=== PATIENT | female | born 2000 | race Hispanic/Latino ===

== ENCOUNTER 2021-06-16 22:33 | Emergency (ER) | payer OTHER, SELFPAY ==
--- NOTE | ~2021-06-16 | US_ITS ---
EXAMINATION: US OB <= 14 weeks fetus DATE: 06/17/2021 00:37 INDICATION: Bleeding during first trimester TECHNIQUE: Real-time pelvic transabdominal and transvaginal ultrasound was performed. COMPARISON: None. FINDINGS: The uterus measures 11.2 x 6.6 x 7.8 cm. There is an intrauterine gestational sac. There i s a 1.3 x 1.3 x 0.5 cm hypoechoic area adjacent to the gestational sac. heart motion is identif ied measuring 153 beats per minute (bpm) by M-mode Doppler. The crown rump length measures 4.5 cm , which correlates with an estimated gestational age of 11 weeks and 2 day(s) (+/-) 7 day(s). The right ovary is not visualized however no right adnexal abnormality is seen. The left ovary measur es 3.4 x 2.7 x 2.3 cm. There is normal vascular flow in the left ovary. There is no free fluid in the pelvis. IMPRESSION: 1. Live intrauterine with an estimated gestational age of 11 weeks and 2 day(s) (+/-) 7 day (s) and an estimated delivery date of 01/04/2022. 2. Small subchorionic hematoma. Reviewed, dictated and finalized at location A. IMPRESSION: 1. Live intrauterine with an estimated gestational age of 11 weeks an d 2 day(s) (+/-) 7 day(s) and an estimated delivery date of 01/04/2022. 2. Small subchorionic hematoma.
[2021-06-16 22:35] VITALS: BP 129/63; PULSE 78; RESP 18; TEMP 36.1; O2SAT 99
--- NOTE | 2021-06-16 22:52 | ED.PREGNANCY ---
HPI - General Chief complaint: Vaginal Bleeding Stated complaint: VAG BLEED 10WEEKS PREG Time Seen by Provider: 06/16/21 22:43 Source: patient Mode of arrival: ambulatory Limitations: no limitations History of Present Illness HPI Narrative: This is a 21-year-old , about 10 weeks , that presents to the emergency department for an episode of vaginal bleeding today. Her OB is Dr. Seals. She has not had ultrasound yet this . Reports she noted blood in her underwear earlier. She has not had any further bleeding since. Denies fever, vomiting, or dysuria. Related Data Allergies Allergy/AdvReac Type Severity Reaction Status Date / Time No Known Allergies Allergy Unverified 05/13/13 11:06 Review of Systems Review of Systems: CONSTITUTIONAL: Denies fever GASTROINTESTINAL: Denies abdominal pain, nausea, vomiting GENITOURINARY: Denies dysuria or hematuria. All systems reviewed & are unremarkable except as noted in HPI and below PMFSH Past Medical History Medical History (Updated 06/17/21 @ 01:54 by Belinda Bagley PA-C) No active medical problems Social History Social History (Updated 06/16/21 @ 22:53 by Belinda Bagley PA-C) Smoking status: Never smoker Exam Narrative: GENERAL: Well-appearing, well-nourished, and in no acute distress. HEAD: Normocephalic, atraumatic. EYES: EOMI. CHEST: Clear to auscultation. No respiratory distress. No wheezes rales or rhonchi HEART: Regular rate and rhythm. No murmur heard. Normal peripheral pulses. ABDOMEN: Soft, nontender, nondistended, normal active bowel sounds. EXTREMITIES: Normal range of motion. No edema. SKIN: Warm, dry, no rash. NEURO: No focal deficits. Alert and oriented x3. PSYCH: Normal mood and affect PELVIC: Normal appearing cervix, closed. No blood noted in the vaginal vault Course Vital Signs Vital signs: Vital Signs Temperature 97 F L 06/16/21 22:35 Pulse Rate 78 06/16/21 22:35 Respiratory Rate 18 06/16/21 22:35 Blood Pressure 129/63 06/16/21 22:35 Pulse Oximetry 99 06/16/21 22:35 Temperature 97 F L 06/16/21 22:35 Pulse Rate 83 06/17/21 00:45 Respiratory Rate 16 06/17/21 00:45 Blood Pressure 119/64 06/17/21 00:45 Pulse Oximetry 100 06/17/21 00:45 MDM - OB/Uterine Contractions MDM Narrative Medical decision making narrative: Patient presents to the emergency department for an episode of vaginal bleeding today, reportedly about 10 weeks by LMP. Her vitals are stable. No bleeding noted on exam. Patient is O+. Her hemoglobin is normal. Her vitals are stable. Obstetrics ultrasound shows a single intrauterine gestation with heart tones noted at 153 bpm. Also shows a small subchorionic hemorrhage. Patient was updated on case findings. Instructed on pelvic rest and to have close follow-up with her OB. She was given warnings to return to the ER Lab Data Attestation: I reviewed the patient's lab results. Result diagrams: 06/16/21 23:12 Labs: Lab Results 06/16/21 06/16/21 06/16/21 Range/Units 23:12 23:12 23:12 WBC 12.6 H (4.5-10.0) K/mm3 RBC 4.21 (4.2-5.4) M/mm3 Hgb 12.1 (12.0-15.0) g/dL Hct 37.2 (37.0-47.0) % MCV 88.4 (80-100) fl MCH 28.7 (26-34) pg MCHC 32.5 (32-36) g/dl RDW 13.3 (11.5-14.5) % Plt Count 229 (150-375) k/mm3 MPV 12.1 H (7.4-10.4) fl Immature Gran % (Auto) 0.4 (0-0.5) % Neut % (Auto) 70.1 (45.5-73.1) % Lymph % (Auto) 23.3 (18.3-44.2) % Edgar % (Auto) 5.2 (2.6-8.5) % Eos % (Auto) 0.8 (0-4.4) % Baso % (Auto) 0.2 (0.2-1.2) % Lymph # (Auto) 2.94 (0.9-3.2) K/mm3 Edgar # (Auto) 0.7 H (0.1-0.6) K/mm3 Eos # (Auto) 0.1 (0-0.3) K/mm3 Baso # (Auto) 0.0 (0.0-0.1) K/mm3 Abs Immat Gran (auto) 0.05 H (0.00-0.031) K/mm3 Absolute Neuts (auto) 8.8 H (1.3-6.7) K/mm3 Absolute Nucleated RBC 0.0 (0.0-0.012) K/mm3 Nucleated RBC % 0.0 (0.
[2021-06-16 23:21] LABS: Basophils Percent Auto 0.2 % (0.2-1.2); Eosinophils Absolute Auto 0.1 K/mm3 (0-0.3); Eosinophils Percent Auto 0.8 % (0-4.4); Hematocrit 37.2 % (37.0-47.0); Hemoglobin 12.1 g/dL (12.0-15.0); Immature Granulocyte Absolute 0.05 K/mm3 (0.00-0.031); Immature Granulocyte Percent A 0.4 % (0-0.5); Lymphocytes Absolute Auto 2.94 K/mm3 (0.9-3.2); Lymphocytes Percent Auto 23.3 % (18.3-44.2); Mean Corpuscular HGB Conc 32.5 g/dl (32-36); Mean Corpuscular Hemoglobin 28.7 pg (26-34); Mean Corpuscular Volume 88.4 fl (80-100); Mean Platelet Volume 12.1 fl (7.4-10.4); Monocytes Absolute Auto 0.7 K/mm3 (0.1-0.6); Monocytes Percent Auto 5.2 % (2.6-8.5); Neutrophils Absolute Auto 8.8 K/mm3 (1.3-6.7); Neutrophils Percent Auto 70.1 % (45.5-73.1); Platelet Count Result 229 k/mm3 (150-375); Red Blood Count 4.21 M/mm3 (4.2-5.4); Red Cell Distribution Width 13.3 % (11.5-14.5); White Blood Count 12.6 K/mm3 (4.5-10.0)
[2021-06-17 00:45] VITALS: BP 119/64; PULSE 83; RESP 16; O2SAT 100
[2021-06-17 02:10] VITALS: BP 101/77; PULSE 66; RESP 16; O2SAT 97
== END 2021-06-17 02:10 | disposition home or self-care (01) ==
PROVIDERS: Physician Assistant; Emergency Provider Emergency Medicine
DX: O46.8X1 Other antepartum hemorrhage, first trimester (principal); Z3A.10 10 weeks gestation of pregnancy
CPT/HCPCS: 36415; 76801; 81025; 84702; 85025; 85461; 99284

== ENCOUNTER 2021-09-25 19:03 | Emergency (ER) | payer OTHER, MEDICAID, SELFPAY ==
[2021-09-25 19:38] VITALS: BP 122/60; PULSE 135; RESP 20; TEMP 36.5; O2SAT 99
[2021-09-25 20:26] LABS: SARS-CoV-2 RNA PCR Positive
[2021-09-25 21:21] VITALS: BP 108/66; PULSE 130; RESP 18; TEMP 37.6; O2SAT 100
--- NOTE | 2021-09-25 21:27 | ED.GENADULT ---
HPI - General Adult General Chief complaint: Unspecified Stated complaint: Headache, sore throat, can't taste anything Time Seen by Provider: 09/25/21 21:07 History of Present Illness HPI narrative: 19-year-old female presents emergency room secondary to cough, congestion, chills, fever, sore throat, and fatigue. Is been going on since yesterday. She is not vaccinated for COVID. She lives with her son who has no symptoms at this point. She is had no associated vomiting diarrhea. No other medical problems. Related Data Allergies Allergy/AdvReac Type Severity Reaction Status Date / Time No Known Allergies Allergy Verified 09/25/21 19:38 Review of Systems Review of Systems: CONSTITUTIONAL: Having chills fever and fatigue EYES: Denies visual changes, redness, or discharge. ENT: Sore throat runny nose noted CARDIOVASCULAR: Denies chest pain, palpitations, or edema. RESPIRATORY: Denies cough or dyspnea. GASTROINTESTINAL: Denies abdominal pain, nausea, vomiting, or diarrhea. GENITOURINARY: Denies dysuria or hematuria. SKIN: Denies rash or itching. MUSCULOSKELETAL: Denies back pain, joint pain, or myalgia. NEUROLOGIC: Denies headache, numbness, or weakness. PSYCHIATRIC: Denies anxiety or depression. PMFSH Past Medical History Medical History No active medical problems Social History Social History Smoking status: Never smoker Exam Narrative: APPEARANCE: Well appearing, no pain or distress, well-nourished. Head Normocephalic and atraumatic. EYES: PERRLA/EOMI, conjunctivae clear. NOSE: Normal with no drainage EARS:TMS clear with Lentz, with good light reflex. THROAT: Pharynx clear, no exudate. NECK: Supple. No adenopathy, no masses. RESPIRATORY: Airway patent, respirations nonlabored. Clear to auscultation bilaterally, no rales, rhonchi, wheezing. CARDIOVASCULAR: Regular rate and rhythm without murmurs, rubs, or gallops. ABDOMINAL: Soft, nontender, nondistended, no hepatosplenomegaly Musculoskeletal: Moves all extremities. Strength/ROM intact, No edema, No calf tenderness. NEURO: Alert. Cranial nerves II through XII intact. Normal gait. Good coordination. Nonfocal examination. SKIN:: Warm, dry. Normal Color PSYCHIATRIC: Normal affect/mood, normal interaction Course Vital Signs Vital signs: Vital Signs Temperature 97.7 F 09/25/21 19:38 Pulse Rate 135 H 09/25/21 19:38 Respiratory Rate 20 09/25/21 19:38 Blood Pressure 122/60 09/25/21 19:38 Pulse Oximetry 99 09/25/21 19:38 Oxygen Delivery Room Air 09/25/21 19:38 Temperature 99.6 F 09/25/21 21:21 Pulse Rate 130 H 09/25/21 21:21 Respiratory Rate 18 09/25/21 21:21 Blood Pressure 122/60 09/25/21 19:38 Pulse Oximetry 100 09/25/21 21:21 Oxygen Delivery Room Air 09/25/21 19:38 Medical Decision Making MDM Narrative Medical decision making narrative: Patient is COVID-positive. Reviewed with her this. I advised her she should get the COVID vaccination after she gets over this. She needs to just go home and rest. Increase fluids. Tylenol Advil as needed. DayQuil and NyQuil as needed. Given a work excuse for the next week. Vital Signs Vital Signs: Vital Signs Temperature 97.7 F 09/25/21 19:38 Pulse Rate 135 H 09/25/21 19:38 Respiratory Rate 20 09/25/21 19:38 Blood Pressure 122/60 09/25/21 19:38 Pulse Oximetry 99 09/25/21 19:38 Oxygen Delivery Room Air 09/25/21 19:38 Temperature 99.6 F 09/25/21 21:21 Pulse Rate 130 H 09/25/21 21:21 Respiratory Rate 18 09/25/21 21:21 Blood Pressure 122/60 09/25/21 19:38 Pulse Oximetry 100 09/25/21 21:21 Oxygen Delivery Room Air 09/25/21 19:38 Lab Data Labs: Lab Results 09/25/21 Range/Units 19:45 SARS-CoV-2 RNA (RT-PCR) Positive A Discharge Plan Discharge Clinical Impression: COVID-19 Patient Disposition:
[2021-09-25 21:34] VITALS: O2SAT 100
== END 2021-09-25 21:35 | disposition home or self-care (01) ==
PROVIDERS: Emergency Provider Emergency Medicine; PCP Obstetrics & Gynecology
DX: U07.1 COVID-19 (principal)
CPT/HCPCS: 99283; C9803; U0003; U0005

== ENCOUNTER 2021-11-08 18:09 | Observation (INO) | payer OTHER, MEDICAID, SELFPAY ==
[2021-11-08 18:47] VITALS: BP 116/67; PULSE 113
[2021-11-08 19:00] VITALS: BP 110/66; PULSE 115
[2021-11-08 20:00] VITALS: BP 113/85; PULSE 102
[2021-11-08] MEDS: CYCLOBENZAPRINE HCL 10 MG TABLET PO (20:02)
[2021-11-08 20:05] LABS: Appearance Urine Slightly Cloudy (Clear); Bilirubin Urine Negative (Negative); Blood Urine Negative (Negative); Color Urine Yellow (Yellow); Glucose Urine UA Negative (Negative); Ketones Urine Negative (Negative); Leukocyte Esterase Ur Negative LEU/UL (Negative); Nitrate Urine Negative (Negative); Protein Urine Negative (Negative); Urobilinogen Urine 0.2 mg/dL (<2.0)
[2021-11-08 20:11] LABS: Bacteria Urine Trace /hpf; Mucus Urine Rare /lpf; RBC Urine 0-2 /hpf (0-2); Squamous Epithelial Cell Urine Moderate /hpf (Few); WBC Urine 0-3 /hpf
[2021-11-08 20:11] LABS: Basophils Percent Auto 0.2 % (0.2-1.2); Eosinophils Percent Auto 0.3 % (0-4.4); Hematocrit 32.9 % (37.0-47.0); Hemoglobin 10.6 g/dL (12.0-15.0); Immature Granulocyte Absolute 0.06 K/mm3 (0.00-0.031); Immature Granulocyte Percent A 0.6 % (0-0.5); Lymphocytes Absolute Auto 1.05 K/mm3 (0.9-3.2); Lymphocytes Percent Auto 10.4 % (18.3-44.2); Mean Corpuscular HGB Conc 32.2 g/dl (32-36); Mean Corpuscular Hemoglobin 27.9 pg (26-34); Mean Corpuscular Volume 86.6 fl (80-100); Monocytes Absolute Auto 0.5 K/mm3 (0.1-0.6); Monocytes Percent Auto 4.5 % (2.6-8.5); Neutrophils Absolute Auto 8.5 K/mm3 (1.3-6.7); Platelet Count Result 181 k/mm3 (150-375); Red Cell Distribution Width 14.1 % (11.5-14.5); White Blood Count 10.1 K/mm3 (4.5-10.0)
[2021-11-08 20:17] LABS: Add Urine Microscopic? YES
--- NOTE | 2021-11-08 21:44 | OBADM ---
This patient, Macrina Olivier, admitted to the OB room [facility] Post [facility] for observation. Patient/family oriented to hospital policies and general routines including ID bracelet, bed and alarms, visiting hours, pain management, procedures, bathroom and other care routines, personal items, smoking policy, room service/diet, and visiting hours. Patient/Family are encouraged to report perceived risks to care and to ask questions if they do not understand what they are told or what they should do.
--- NOTE | 2021-11-26 19:50 | PM.OBTRLD ---
OB - Triage/Final Diagnosis Visit Information Comments/Additional reasons for admission: I have assessed the risk for this patient, Macrina Olivier, and determined that she would benefit from observation care. Evaluation Laboratory results: Laboratory Tests 11/08/21 11/08/21 19:00 19:56 WBC 10.1 H RBC 3.80 L Hgb 10.6 L Hct 32.9 L MCV 86.6 MCH 27.9 MCHC 32.2 RDW 14.1 Plt Count 181 MPV 12.0 H Immature Gran % (Auto) 0.6 H Neut % (Auto) 84.0 H Lymph % (Auto) 10.4 L Sequoyah % (Auto) 4.5 Eos % (Auto) 0.3 Baso % (Auto) 0.2 Lymph # (Auto) 1.05 Sequoyah # (Auto) 0.5 Eos # (Auto) 0.0 Baso # (Auto) 0.0 Abs Immat Gran (auto) 0.06 H Absolute Neuts (auto) 8.5 H Absolute Nucleated RBC 0.0 Nucleated RBC % 0.0 Urine Color Yellow Urine Appearance Slightly cloudy Urine pH 6.0 Ur Specific Follett 1.020 Urine Protein Negative Urine Glucose (UA) Negative Urine Ketones Negative Ur Blood (Man) Negative Urine Nitrate Negative Urine Bilirubin Negative Urine Urobilinogen 0.2 Leukocyte Esterase Rfl Negative Urine RBC 0-2 Urine WBC 0-3 Ur Squamous Epith Cells Moderate H Urine Bacteria Trace Urine Mucus Rare Final Diagnosis (1) Abdominal pain: Code(s): R10.9 - Unspecified abdominal pain Status: Acute
== END 2021-11-08 20:40 | disposition home or self-care (01) ==
PROVIDERS: Advanced Practice Midwife; Admitting Provider Obstetrics & Gynecology; Visit Provider Obstetrics & Gynecology
DX: O26.893 Other specified pregnancy related conditions, third trimester (principal); R10.9 Unspecified abdominal pain; M54.9 Dorsalgia, unspecified; R10.2 Pelvic and perineal pain; Z3A.31 31 weeks gestation of pregnancy
CPT/HCPCS: 36415; 81001; 85025; A9270; G0378; G0379

== ENCOUNTER 2021-12-11 22:00 | Outpatient (CLI) | payer OTHER, MEDICAID, SELFPAY ==
--- NOTE | 2021-12-11 22:57 | PC.NURSE ---
pt came in with C/O leaking fluid. states that she was laying in bed and felt fluid leaking. [id number]- called Dr. Seals- informed of pt admission for possible SROM- ROM Plus- negative. FHT reviewed. order received to d/c home with instructions on when to return to L&D.
== END 2021-12-11 22:01 | disposition home or self-care (01) ==
PROVIDERS: Visit Provider Obstetrics & Gynecology
DX: O26.851 Spotting complicating pregnancy, first trimester (principal); Z3A.00 Weeks of gestation of pregnancy not specified
CPT/HCPCS: 59025; 84112

== ENCOUNTER 2021-12-24 09:56 | Outpatient (CLI) | payer OTHER, MEDICAID, SELFPAY ==
[2021-12-24 10:14] VITALS: BP 127/72; PULSE 90
--- NOTE | 2021-12-24 10:58 | PM.IMHP ---
H&P: HPI History of Present Illness Date/Time: 12/24/21 10:58 Chief Complaint: Loss of fluid Narrative: 21-year-old 2 para 1001 at term with suspected rupture membranes. She had some gross watery vaginal discharge. She was evaluated here found to be intact with no ruptured membranes that was detectable. She is having an occasional contraction. She denies any vaginal bleeding or regular contractions. She denies any chest pain shortness of breath. She denies any nausea, vomiting, fever, chills. She reports good movement. Review of Systems Review of Systems: All systems reviewed & are unremarkable except as noted in HPI and below Constitutional: Constitutional: Denies chills, Denies fatigue, Denies fever(s) and Denies weakness Eyes: Eyes: Denies blurry vision, Denies change in vision, Denies loss of peripheral vision, Denies loss of vision, Denies other visual disturbances and Denies eye pain ENT: Denies vertigo, Denies dizziness, Denies hearing loss, Denies mouth pain, Denies nasal obstruction, Denies neck mass and Denies neck pain Cardiovascular: Cardiovascular: Denies chest pain, Denies diaphoresis, Denies syncope, Denies leg edema and Denies dyspnea Respiratory: Respiratory: Denies chest congestion, Denies cough, Denies hemoptysis, Denies dyspnea and Denies wheezing Gastrointestinal: Gastrointestinal: Denies abdominal pain, Denies constipation, Denies diarrhea, Denies nausea and Denies vomiting Genitourinary: Genitourinary: Denies hematuria, Denies change in libido, Denies nocturia, Denies genital lesions, Denies flank pain and Denies urinary urgency Musculoskeletal: Musculoskeletal: Denies abnormal gait, Denies back pain, Denies myalgias, Denies arthralgias, Denies joint swelling, Denies muscle weakness and Denies neck pain Integumentary/Breasts: Skin/Breast: Denies swelling, Denies breast pain, Denies breast mass, Denies dry skin, Denies nipple discharge, Denies unusual bruising and Denies jaundice Neurologic: Denies Neuro-related abnormal movements, Denies Abnormal speech present, Denies abnormal gait, Denies behavioral changes, Denies confusion, Denies vertigo, Denies dizziness, Denies syncope, Denies loss of vision, Denies memory loss, Denies convulsions and Denies weakness Psychiatric: Psychiatric: Denies abnormal sleep pattern, Denies behavioral changes, Denies change in libido, Denies confusion, Denies depression, Denies anhedonia and Denies memory loss Endocrine: Endocrine: Reports no additional endocrine complaints, Denies change in libido and Denies fatigue Hematologic/Lymphatic: Hematologic/Lymphatic: Reports no additional hematologic/lymphatic complaints Allergic/Immunologic: Allergic/Immunologic: Reports no additional allergic/immunologic complaints and Denies wheezing PMFSH Past Medical History Medical History No active medical problems Family History Family History (Updated 12/06/21 @ 12:42 by Brijesh Santos RN) Other No pertinent family history Social History Social History Smoking status: Never smoker Substance use: never Spiritual care concerns: No Meds Home Medications and Allergies Allergies Allergy/AdvReac Type Severity Reaction Status Date / Time No Known Allergies Allergy Verified 12/06/21 12:42 Vital Signs Vital Signs - 24 hr 12/24/21 10:14 Pulse Rate 90 Blood Pressure 127/72 Exam Const: General: cooperative, healthy appearing, comfortable and no acute distress; No confusion Orientation/consciousness: oriented to person, oriented to place, oriented to time and No confusion HENMT: Head: normal to inspection Ears: external ears normal Face/Nose/Sinus: Normal external nose present and normal facial exam Face and sinus: normal facial exam Eyes: General: appearance normal, both eyes and all related structures Neck: Neck: normal visu
[2021-12-24 11:47] VITALS: BP 127/72; PULSE 105
== END 2021-12-24 11:04 | disposition home or self-care (01) ==
LOC: ANHOBOP 10:02 → ANHLDR 10:04
PROVIDERS: Visit Provider Obstetrics & Gynecology
DX: O42.90 Premature rupture of membranes, unspecified as to length of time between rupture and onset of labor, unspecified weeks of gestation (principal); Z3A.00 Weeks of gestation of pregnancy not specified
CPT/HCPCS: 59025; 84112; 99199

== ENCOUNTER 2021-12-31 21:26 | Inpatient (IN) | payer OTHER, MEDICAID, SELFPAY ==
[2021-12-31] VITALS (10 sets, daily range): BP systolic 77–143; BP diastolic 58–129; PULSE 55–124; RESP 17; TEMP 37.1; BMI 43.1
--- NOTE | 2021-12-31 21:26 | LDADM ---
This patient, Macrina Olivier, was admitted to Labor/Delivery/Recovery 108 on 12/31/21 at 21:26. Plans for labor, pain management and were discussed with patient. Patient/family oriented to hospital policies and general routines including ID bracelet, bed and alarms, visiting hours, pain management, procedures, bathroom and other care routines, personal items, smoking policy, room service/diet and guest tray routines, security routines, and visiting hours. Patient/Family are encouraged to report perceived risks to care and to ask questions if they do not understand what they are told or what they should do. See OBIX for further documentation.
--- OUTSIDE RECORDS SUMMARY | 2021-12-31 21:36 | XMS_ITS | Encounter Summary ---
:2000 Author Reason for Visit None recorded. Assessment and Plan 1. Reduced movement ? US, obstetric, limited Discussion Note: None recorded.Patient educational handouts: No information available. Plan of Care Reminders Provider Appointments Ob Routine 01/03/2022 10:45AM Ana guzman CNM Lab None recorded. ? ? Referral None recorded. ? ? Procedures None recorded. ? ? Surgeries None recorded. ? ? Imaging US, Obstetric, Limited 12/29/2021 Pb simental Medications Name Start Date ? ? calcium carbonate 600 mg-vitamin D3 10 mcg (400 unit) tablet ? TAKE ONE TABLET BY MOUTH TWICE DAILY multivitamin tablet ? TAKE 1 TABLET BY MOUTH EVERY DAY Medications Administered None recorded. Vitals None recorded. Results Lab Results None recorded. Allergies None recorded. Problems Name Status Onset Date Source ? Active 07/06/2021 ? Procedures Date Name Performed by ? 12/15/2021 US, Obstetric, Follow-up [place] [address] [place] [address] ([address]) 12/29/2021 Non-stress Test [facility] [address] [place] [address] ([address]) 12/29/2021 US, Obstetric, Limited [facility] [address] [place] [address]
--- OUTSIDE RECORDS SUMMARY | 2021-12-31 21:36 | XMS_ITS | Encounter Summary ---
:1999 Author Reason for Visit OB visit OB [id number] EDC 01/04/2022 LMP 04/05/2021 Assessment and Plan Assessment Note Patient is __ 37 weeks . Discus sed plan. Discussion Note: None recorded.Patient educational handouts: No information available. Plan of Care Reminders Provider Appointments Ob Routine 01/03/2022 10:45AM Ana guzman CNM Lab None recorded. ? ? Referral None recorded. ? ? Procedures None recorded. ? ? Surgeries None recorded. ? ? Imaging None recorded. ? ? Medications Name Start Date ? ? calcium carbonate 600 mg-vitamin D3 10 mcg (400 unit) tablet ? TAKE ONE TABLET BY MOUTH TWICE DAILY multivitamin tablet ? TAKE 1 TABLET BY MOUTH EVERY DAY Medications Administered None recorded. Vitals Height Weight BMI Blood Pressure 5 ft 2 in 233 lbs 42.6 kg/m2 129/74 mm[Hg] Results Lab Results None recorded. Allergies None recorded. Problems Name Status Onset Date Source ? Active 07/06/2021 ? Procedures Date Name Performed by ? 12/15/2021 , Obstetric, Follow-up [place] [address] [place] [address] ([address]) Vaccine List None recorded. Social History Tobacco Smoking Status Never Smoker Do you have difficulty walking or climbing stairs? N What type of diet are you following? REGULAR Are you able to walk? YESWOREST Are you able to care for yourself? Y
--- OUTSIDE RECORDS SUMMARY | 2021-12-31 21:36 | XMS_ITS ---
:1999 Author Care Team Providers Name Role Phone Ana Chen Primary Care Provider Unavailable Allergies None recorded. Medications Name Status Start Date Stop Date ? ? calcium carbonate 600 mg-vitamin D3 10 mcg (400 unit) tablet Act fabienne ? Not available TAKE ONE TABLET BY MOUTH TWICE DAILY multivitamin tablet Active ? Not availabl e TAKE 1 TABLET BY MOUTH EVERY DAY Problems Name Status Onset Date Source ? Active 07/06/2021 ? Procedures Date Name Performed by ? 07/06/2021 US, Obstetric, 1St Trimester [place] [address] [place], [place] [phone] ([address]) 09/21/2021 US, Obstetric, 2Nd or 3Rd Trimester [facility] [address] [place], [place] [phone] ([address]) 10/19/2021 , Obstetric, Follow-up [place] [address] [place] [address] ([address]) 11/13/2021 , Obstetric, Follow-up [place] [address] [place] [address] ([address]) 12/15/2021 , Obstetric, Follow-up [place] [address] [place] [place] [address] ([address]) 12/29/2021 Non-stress Test [place] [address]
--- OUTSIDE RECORDS SUMMARY | 2021-12-31 21:36 | XMS_ITS | Encounter Summary ---
:1999 Author Reason for Visit None recorded. Assessment and Plan 1. Reduced movement ? non-stress test Discussion Note: None recorded.Patient educational handouts: No information available. Plan of Care Reminders Provider Appointments Ob Routine 01/03/2022 10:45AM Ana guzman CNM Lab None recorded. ? ? Referral None recorded. ? ? Procedures None recorded. ? ? Surgeries None recorded. ? ? Imaging Non-stress Test 12/29/2021 [place] Medications Name Start Date ? ? calcium [...] Performed by ? 12/15/2021 US, Obstetric, Follow-up [place] [address] [place] [address] ([address]) 12/29/2021 Non-stress Test [place] [address] [place] [address] ([address]) 12/29/2021 US, Obstetric, Limited [place] [address] [place] [address] ([address]) Vaccine List None re
--- OUTSIDE RECORDS SUMMARY | 2021-12-31 21:36 | XMS_ITS | Encounter Summary ---
:1999 Author Reason for Visit OB visit OB [id number] EDC 01/04/2022 LMP 04/05/2021 Assessment and Plan Assessment Note Patient is ___39 weeks . Discus sed plan. 1. Routine care Discussion Note: None recorded.Patient educational handouts: No [...] BMI Blood Pressure 5 ft 2 in 236 lbs 43.2 kg/m2 133/82 mm[Hg] Results Lab Results None recorded. Allergies None recorded. Problems Name Status Onset Date Source ? Active 07/06/2021 ? Procedures Date Name Performed by ? 12/15/2021 US, Obstetric, Follow-up [place] [address] [place] [address] ([address]) 12/29/2021 Non-stress Test [place] [address] [place] [address] ([address]) 12/29/2021 US, O
--- OUTSIDE RECORDS SUMMARY | 2021-12-31 21:36 | XMS_ITS | Encounter Summary ---
:1999 Author Reason for Visit OB visit Assessment and Plan 1. Routine care Discussion Note: None recorded.Patient [...] BMI Blood Pressure 5 ft 2 in 235 lbs 43 kg/m2 115/76 mm[Hg] Results Lab Results None recorded. Allergies None recorded. Problems Name Status Onset Date Source ? Active 07/06/2021 ? Procedures Date Name Performed by ? 12/15/2021 US, Obstetric, Follow-up [place] [address] [place] [address] ([address]) Vaccine List None recorded. Social History Tobacco Smoking Status Never Smoker Do you have difficulty walking or climbing stairs? N What type of diet are you following? REGULAR Are you able to walk? YESWOREST Are you able to care for yourself? Y Has tobacco cessation counseling been provided? N Are you blind or do you have difficulty seeing? N
--- OUTSIDE RECORDS SUMMARY | 2021-12-31 21:36 | XMS_ITS | Encounter Summary ---
:1999 Author Reason for Visit None recorded. Assessment and Plan 1. Chronic hypertension complicating AN D/OR reason for care during ? US, obstetric, follow-up Discussion Note: None recorded.Patient educational handouts: No information available. Plan of Care Reminders Provider Appointments Ob Routine 01/03/2022 10:45AM Ana guzman CNM Lab None recorded. ? ? Referral None recorded. ? ? Procedures None recorded. ? ? Surgeries None recorded. ? ? Imaging US, Obstetric, Follow-up 12/15/2021 Luis Felipe joseph Medications Name Start Date ? ? calcium [...] Performed by ? 12/15/2021 US, Obstetric, Follow-up [place] [address] [place] [address] ([address]) Vaccine List [...]
--- OUTSIDE RECORDS SUMMARY | 2021-12-31 21:37 | XMS_ITS ---
:2000 Author Allergies Code Code System Name Reaction Severity Status Onset NKDA ? Notes: lactose intolerant Medications Name Status Start Date Stop Date ? ? cabergoline 0.5 mg tablet Completed ? 2021 Calcium 600 with Vitamin D3 600 mg-10 mcg (400 unit) capsule Com pleted ? 01/16/2018 Take 1 capsule every day by oral route. calcium carbonate 1,000 mg-vitamin D3 20 mcg (800 unit) tablet C ompleted ? 02/08/2017 Take 1 tablet twice a day by oral route. calcium carbonate 600 mg-vitamin D3 10 mcg (400 unit) tablet Act fabienne ? Not available TAKE ONE TABLET BY MOUTH TWICE DAILY calcium carbonate 600 mg-vitamin D3 20 mcg (800 unit) tablet Com pleted ? 02/08/2017 Take 1 tablet twice a day by oral route for 30 days. calcium carbonate 600 mg-vitamin D3 25 mcg (1,000 unit) tablet C ompleted ? 02/08/2017 Take 1 tablet every day by oral route. cimetidine 800 mg tablet Completed ? 017 Condoms-Mauricio Lubricated Completed ? 06/07/19 22 Take 1 device as needed by miscell. route as needed. Depo-Provera 150 mg/mL intramuscular syringe Completed ? 09/16/2015 Inject 150 mL every 3 months by intramuscular route as directed . ibuprofen 800 mg tablet Completed ? 02/09/20 17 Take one tablet every eight hours as needed. medroxyprogesterone 150 mg/mL intramuscular suspension Completed ? 07/21/2020 ADM 150 ML IM Q 3 MONTHS multivitamin tablet Active ? Not availabl e TAKE 1 TABLET BY MOUTH EVERY DAY Nexplanon 68 mg subdermal implant Completed ? 01/19/2016 Inject 1 implant by subcutaneous route. nitrofurantoin macrocrystal 100 mg capsule Completed
--- OUTSIDE RECORDS SUMMARY | 2021-12-31 21:37 | XMS_ITS | Encounter Summary ---
:2000 Author Reason for Visit OB visit OB [id number] EDC 01/04/2022 LMP 04/05/2021 Assessment and Plan 1. Routine care Discussion [...] BMI Blood Pressure 5 ft 2 in 232 lbs 42.4 kg/m2 107/75 mm[Hg] Results Lab Results None recorded. Allergies None recorded. Problems Name Status Onset Date Source ? Active 07/06/2021 ? Procedures Date Name Performed by ? 10/19/2021 , Obstetric, Follow-up [place] [address] [place] [address] ([address]) Vaccine List None recorded. Social History Tobacco Smoking Status Never Smoker Do you have difficulty walking or climbing stairs? N What type of diet are you following? REGULAR Are you able to walk? YESWOREST Are you able to care for yourself? Y Has tobacco cessation counseling been provided? N
--- OUTSIDE RECORDS SUMMARY | 2021-12-31 21:37 | XMS_ITS | Encounter Summary ---
[...] BMI Blood Pressure 5 ft 2 in 230 lbs 42.1 kg/m2 108/71 mm[Hg] Results Lab Results None recorded. Allergies None recorded. Problems Name Status Onset Date Source ? Active 07/06/2021 ? Procedures Date Name Performed by ? 09/21/2021 US, Obstetric, 2Nd or 3Rd Trimester [facility] [address] [place] [address] ([address]) 10/19/2021 US, Obstetric, Follow-up [place] [address] [place] [address] ([address]) Vaccine List None recorded. Social History Tobacco Smoking Status Never Smoker Do you have difficulty walking or climbing stairs? N What type of diet are yo
--- OUTSIDE RECORDS SUMMARY | 2021-12-31 21:37 | XMS_ITS | Encounter Summary ---
:2000 Author Reason for Visit OB visit OB [id number] EDC 01/04/2022 LMP 04/05/2021 Assessment and Plan [...] BMI Blood Pressure 5 ft 2 in 234 lbs 42.8 kg/m2 118/75 mm[Hg] Results Lab Results None recorded. Allergies None recorded. Problems Name Status Onset Date Source ? Active 07/06/2021 ? Procedures Date Name Performed by ? 10/19/2021 US, Obstetric, Follow-up [place] [address] [place] [address] ([address]) 11/13/2021 US, Obstetric, Follow-up [place] [address] [place] [address] ([address]) Vaccine List None recorded. Social History Tobacco Smoking Status Never Smoker Do you have difficulty walking or climbing stairs? N
--- OUTSIDE RECORDS SUMMARY | 2021-12-31 21:37 | XMS_ITS | Encounter Summary ---
:2000 Author Reason for Visit OB visit OB [id number] EDC 01/04/2022 LMP 04/05/2021 Assessment and Plan Assessment Note Patient is __36_weeks . Discuss ed plan. 1. Routine care Discussion Note: None [...] ft 2 in 230 lbs 42.1 kg/m2 122/67 mm[Hg] Results Lab Results None recorded. Allergies None recorded. Problems Name Status Onset Date Source ? Active 07/06/2021 ? Procedures Date Name Performed by ? 11/13/2021 , Obstetric, Follow-up [place] [address] [place] [address] (Work [address]) Vaccine List None recorded. Social History Tobacco Smoking Status Never Smoker Do you have difficulty walking or climbing stairs? N What type of diet are you following? REGULAR Are you able to walk? YESWOREST
--- OUTSIDE RECORDS SUMMARY | 2021-12-31 21:37 | XMS_ITS | Encounter Summary ---
:2000 Author Reason for Visit None recorded. Assessment and Plan 1. -induced hypertension ? US, obstetric, follow-up Discussion Note: None recorded.Patient educational handouts: No information available. Plan of Care Reminders Provider Appointments Ob Routine 01/03/2022 10:45AM Ana guzman CNM Lab None recorded. ? ? Referral None recorded. ? ? Procedures None recorded. ? ? Surgeries None recorded. ? ? Imaging US, Obstetric, Follow-up 11/13/2021 Luis Felipe joseph Medications Name Start Date [...] Performed by ? 10/19/2021 US, Obstetric, Follow-up [place] [address] [place] [address] ([address]) 11/13/2021 , Obstetric, Follow-up [place] [address] [place] [address] ([address]) Vaccine List None recorded. Social History Tobacco Smoking Status Never Smoker Do you have difficulty walking or climbing stairs? N What type of diet are you f
--- OUTSIDE RECORDS SUMMARY | 2021-12-31 21:37 | XMS_ITS | Encounter Summary ---
:2000 Author Reason for Visit None recorded. Assessment and Plan 1. Pre-existing maternal disease compli cating ? US, obstetric, follow-up Discussion Note: None recorded.Patient educational handouts: No information available. Plan of Care Reminders Provider Appointments Ob Routine 01/03/2022 10:45AM Ana guzman CNM Lab None recorded. ? ? Referral None recorded. ? ? Procedures None recorded. ? ? Surgeries None recorded. ? ? Imaging US, Obstetric, Follow-up 10/19/2021 Luis Felipe joseph Medications Name Start Date [...] US, Obstetric, 2Nd or 3Rd Trimester Gricelda mclaughlin [address] [place] [address] ([address]) 10/19/2021 US, Obstetric, Follow-up [place] [address] ([address]) Vaccine List None recorded. Social History Tobacco Smoking Status Never Smoker Do you have difficulty walking or climbing stairs? N
--- OUTSIDE RECORDS SUMMARY | 2021-12-31 21:37 | XMS_ITS | Encounter Summary ---
:2000 Author Reason for Visit OB visit OB [id number] EDC 01/04/2022 LMP 04/05/2021 Assessment and Plan Assessment Note Patient is _34__weeks . Discuss ed plan. 1. Routine care [...] ft 2 in 232 lbs 42.4 kg/m2 97/63 mm[Hg] Results Lab Results None recorded. Allergies None recorded. Problems Name Status Onset Date Source ? Active 07/06/2021 ? Procedures Date Name Performed by ? 11/13/2021 , Obstetric, Follow-up [place] [address] [place] [address] ([address]) Vaccine List None recorded. Social History Tobacco Smoking Status Never Smoker Do you have difficulty walking or climbing stairs? N What type of diet are you following? REGULAR Are you able to walk? YESWOREST
--- NOTE | 2021-12-31 21:54 | WPDOBADMIT ---
Obstetrics - Admit Note Admission Note: record reviewed. No pertinent additions to the history and/or any subsequent changes in the physical findings that are not consistent with the expected course of the were found. Pt admitted to LD in active labor, anticipate vaginal delivery Additions to the history and/or subsequent changes in the physical findings follow. None.
[2021-12-31 21:55] LABS: Basophils Percent Auto 0.2 % (0.2-1.2); Eosinophils Absolute Auto 0.1 K/mm3 (0-0.3); Eosinophils Percent Auto 0.4 % (0-4.4); Hematocrit 36.1 % (37.0-47.0); Hemoglobin 11.6 g/dL (12.0-15.0); Immature Granulocyte Absolute 0.08 K/mm3 (0.00-0.031); Immature Granulocyte Percent A 0.6 % (0-0.5); Immature Platelet Fraction Pct 17.2 % (0.9-11.2); Lymphocytes Absolute Auto 2.29 K/mm3 (0.9-3.2); Lymphocytes Percent Auto 18.4 % (18.3-44.2); Mean Corpuscular HGB Conc 32.1 g/dl (32-36); Mean Corpuscular Hemoglobin 26.7 pg (26-34); Mean Corpuscular Volume 83.2 fl (80-100); Mean Platelet Volume 12.6 fl (7.4-10.4); Monocytes Absolute Auto 0.8 K/mm3 (0.1-0.6); Monocytes Percent Auto 6.5 % (2.6-8.5); Neutrophils Absolute Auto 9.2 K/mm3 (1.3-6.7); Neutrophils Percent Auto 73.9 % (45.5-73.1); Platelet Count Result 201 k/mm3 (150-375); Red Blood Count 4.34 M/mm3 (4.2-5.4); Red Cell Distribution Width 14.9 % (11.5-14.5); White Blood Count 12.4 K/mm3 (4.5-10.0)
[2021-12-31] MEDS: OXYTOCIN 30 UNITS/NS 500 ML 30 UNITS/500 ML BAG 999 UNITS IV CONT (22:35)
--- NOTE | 2021-12-31 22:47 | PM.OBPRVD ---
OB - Delivery Note Procedure Delivery date: 12/31/21 Procedure: Delivery augmentation: Rupture of Membranes Delivery monitor: External FHT and External Uterine Route of delivery: Laceration Description: Superficial Specimen: No Quantitative Blood Loss (ml): 100 Anesthesia type: None Disposition: Floor Narrative: mom and baby stable and doing skin to skin [place] Baby Date of : 12/31/21 Time of : 22:33 Weeks of gestation at delivery: 39 Infant gender: Male presentation: vertex position: Left Occiput Anterior Placenta delivery description: Spontaneous Cord Vessel Description: 3 Vessels, Clamped/Cut and Delayed Cord Clamping score one minute: 8 score five minutes: 9
[2021-12-31] MEDS: IBUPROFEN 600 MG TABLET PO (23:04)
[2022-01-01] VITALS (10 sets, daily range): BP systolic 83–140; BP diastolic 48–76; PULSE 69–106; RESP 16–18; TEMP 36.5–37.6; O2SAT 99–100
[2022-01-01] MEDS: WITCH HAZEL 40 PADS 1 PAD TOPICAL (01:08)
[2022-01-01] MEDS: BENZOCAINE 20% AER SPR (*SP) 56 GM CAN 1 SPRAY TOPICAL (01:08)
[2022-01-01 01:17] LABS: Hematocrit 34.7 % (37.0-47.0); Hemoglobin 11.2 g/dL (12.0-15.0)
--- NOTE | 2022-01-01 01:23 | PC.NURSE ---
Patient transferred to post room #292 via w/c. Support person, Glen, present. Oriented to unit, room, information board, rooming in, admission packet and security measures. Patient verbalizes understanding.
[2022-01-01 01:59] LABS: Alanine Aminotransferase 13 U/L (6-35); Albumin Level 3.5 g/dL (3.5-5.1); Alkaline Phosphatase 136 U/L (38-126); Anion Gap 7 mmol/L (8-16); Aspartate Amino Transferase 24 U/L (14-36); Bilirubin,Total 0.1 mg/dL (0.2-1.3); Blood Urea Nitrogen 5 mg/dL (7-17); Calcium 9.2 mg/dL (8.4-10.2); Carbon Dioxide 20 mmol/L (22-30); Chloride 109 mmol/L (98-107); Estimated CRCL calculation 169 ml/min; Estimated Glomerular Filt Rate > 60; Glucose 105 mg/dL (65-110); Potassium 3.8 mmol/L (3.4-5.0); Sodium 136 mmol/L (137-145); Uric Acid 5.2 mg/dL (2.5-7.5)
[2022-01-01 06:43] LABS: Rapid Plasma Reagin Non-Reactive (NonReactive)
--- NOTE | 2022-01-01 08:00 | PM.OBPNVD ---
OB - PN: Subj Subjective Date/time seen: 01/01/22 08:00 Patient comments: no complaints and pain well controlled baby status: doing well and nursing well OB - PN: Obj Data Labs CBC & Chem 7: 01/01/22 01:09 01/01/22 01:09 Labs: Laboratory Results - last 24 hr 12/31/21 12/31/21 01/01/22 21:45 21:45 01:09 WBC 12.4 H RBC 4.34 Hgb 11.6 L Hct 36.1 L MCV 83.2 MCH 26.7 MCHC 32.1 RDW 14.9 H Plt Count 201 MPV 12.6 H Immature Gran % (Auto) 0.6 H Neut % (Auto) 73.9 H Lymph % (Auto) 18.4 Mcleod % (Auto) 6.5 Eos % (Auto) 0.4 Baso % (Auto) 0.2 Lymph # (Auto) 2.29 Mcleod # (Auto) 0.8 H Eos # (Auto) 0.1 Baso # (Auto) 0.0 Abs Immat Gran (auto) 0.08 H Absolute Neuts (auto) 9.2 H Absolute Nucleated RBC 0.0 Nucleated RBC % 0.0 % Immature Plt Fraction 17.2 H Sodium Potassium Chloride Carbon Dioxide Anion Gap BUN Creatinine Estim Creat Clear Calc Estimated GFR Glucose Uric Acid Cancelled Calcium Total Bilirubin AST ALT Alkaline Phosphatase Total Protein Albumin RPR Non-reactive Blood Type Antibody Screen 01/01/22 01/01/22 01/01/22 01:09 01:09 01:09 WBC RBC Hgb 11.2 L Hct 34.7 L MCV MCH MCHC RDW Plt Count MPV Immature Gran % (Auto) Neut % (Auto) Lymph % (Auto) Mcleod % (Auto) Eos % (Auto) Baso % (Auto) Lymph # (Auto) Mcleod # (Auto) Eos # (Auto) Baso # (Auto) Abs Immat Gran (auto) Absolute Neuts (auto) Absolute Nucleated RBC Nucleated RBC % % Immature Plt Fraction Sodium 136 L Potassium 3.8 Chloride 109 H Carbon Dioxide 20 L Anion Gap 7 L BUN 5 L Creatinine 0.50 L Estim Creat Clear Calc 169 Estimated GFR > 60 Glucose 105 Uric Acid 5.2 Calcium 9.2 Total Bilirubin 0.1 L AST 24 ALT 13 Alkaline Phosphatase 136 H Total Protein 7.0 Albumin 3.5 RPR Blood Type O Positive Antibody Screen Negative OB - PN A/P Plan day: 1 Plan: routine care Time Spent With Patient Time: Total time spent is greater than 50% in coordination of care (as documented) at patient's floor/unit and/or counseling patient: Time with patient: less than 15 minutes Exam Narrative: NAD abdomen soft, nontender, fundus firm below the umbilicus Extremities nontender, 1+ edema
[2022-01-01] MEDS: MULTIVIT/MIN/PREN/FOL AC/IRON TABLET 1 TAB PO (09:20)
[2022-01-01] MEDS: DOCUSATE SODIUM 100 MG CAPSULE PO (09:20)
[2022-01-01] MEDS: IBUPROFEN 600 MG TABLET PO (19:50)
--- NOTE | 2022-01-02 07:30 | PM.OBPNVD ---
OB - PN: Subj Subjective Date/time seen: 01/02/22 07:30 s/p vaginal delivery post delivery day 2 OB - PN: Obj Data Labs CBC & Chem 7: 01/01/22 01:09 01/01/22 01:09 OB - PN A/P Plan day: 2 Plan: routine care and discharge home Time Spent With Patient Time: Total time spent is greater than 50% in coordination of care (as documented) at patient's floor/unit and/or counseling patient: Review of Systems Review of Systems: All systems reviewed & are unremarkable except as noted in HPI and below Exam Const: General: cooperative, healthy appearing and comfortable
--- NOTE | 2022-01-02 07:32 | P.DS_ITS ---
DS: Admitting Diagnosis Discharge Date 01/02/22 Admitting Diagnosis labor OB - DS: Summary OB Procedures : None OB Procedures Intrapartum: Spontaneous Vag Delivery OB Procedures: : None Time Spent with Patient Time attestation: Total time spent providing and/or coordinating discharge services: Discharge Plan Discharge Attending physician on discharge: Deirdre Seals Discharging Clinician: Ana Chen Patient Disposition: Home, Self-Care Activity: pelvic rest Diet: regular Patient Instructions: Antibiotic Form Stand Alone Forms: General Discharge Information Follow-up/Referrals: Ana Chen CNM [Certified Nurse Tobacco Prevention Health Educator] - 4 Weeks Discharge Medications: New ibuprofen 600 mg Tablet 600 mg PO Q6H PRN (Reason: Cramping) Qty: 30 0RF Date of admission: 12/31/21 21:26 Primary Care Provider: UNKNOWN,DOCTOR Admitting Provider: Deirdre Seals Attending physician on admission: Deirdre Seals Condition: Stable
[2022-01-02 08:15] VITALS: BP 118/66; PULSE 65; RESP 18; TEMP 36.9; O2SAT 100
[2022-01-02] MEDS: IBUPROFEN 600 MG TABLET PO (08:36)
[2022-01-02] MEDS: MULTIVIT/MIN/PREN/FOL AC/IRON TABLET 1 TAB PO (08:36)
--- NOTE | 2022-01-02 09:47 | PC.NURSE ---
Patient viewed the discharge video Mother & Baby Care, The First Two Weeks . Patient was given the opportunity and encouraged to ask questions. Patient verbalized understanding of information shared and has been given the mother/baby guide for home reference.
[2022-01-03 08:50] VITALS: BP 123/64; PULSE 92; RESP 16; TEMP 36.6; O2SAT 99
== END 2022-01-02 10:52 | disposition home or self-care (01) | DRG 807 ==
LOC: ANHLDR 21:35 → ANHOB2 01-01 02:17
PROVIDERS: Advanced Practice Midwife; Admitting Provider Obstetrics & Gynecology; Visit Provider Obstetrics & Gynecology
DX: O62.3 Precipitate labor (principal); Z37.0 Single live birth; O70.0 First degree perineal laceration during delivery; Z3A.39 39 weeks gestation of pregnancy
CPT/HCPCS: 36415; 80053; 84550; 85014; 85018; 85025; 85055; 86592; 86850; 86900; 86901; A9270; J2590